=== PATIENT | male | born 1960 | race Caucasian/White ===

== ENCOUNTER 2021-05-10 13:34 | Inpatient (IN) | payer OTHER ==
[~2021-05-10] VITALS: Ht 154.9 cm; Wt 60.1 kg
[2021-05-10] MEDS ORDERED: HEPARIN SODIUM 25000 UNITS/D5W 250 ML IV PRN (14:30)
[2021-05-10 14:55] LABS: BASOPHILS % (AUTO) 0.5 % (0.0-2.0); EOSINOPHILS % (AUTO) 0.3 % (1.0-6.0); HEMATOCRIT 38.8 % (41-53); HEMOGLOBIN 12.9 g/dL (13.5-17.5); LYMPHOCYTES # (AUTO) 2.1 K/uL (1.0-4.8); LYMPHOCYTES % (AUTO) 18.1 % (22.0-44.0); MEAN CORPUSCULAR HGB CONC 33.3 G/dL (31.0-37.0); MEAN CORPUSCULAR VOLUME 84 fL (80-100); MONOCYTES # (AUTO) 1.3 K/uL (0.1-1.0); MONOCYTES % (AUTO) 11.2 % (2.0-9.0); NEUTROPHILS # (AUTO) 8.3 K/uL (1.8-7.7); NEUTROPHILS % (AUTO) 69.9 % (40.0-70.0); PLATELET COUNT (AUTO) 324 K/uL (150-450); RED BLOOD CELL COUNT(AUTO) 4.61 MIL/uL (4.50-5.90); RED CELL DISTRIBUTION WIDTH 13.5 % (11.5-14.5)
[2021-05-10] MEDS ORDERED: HEPARIN SODIUM,PORCINE 5,000 UNITS/ML VIAL IVP PRN ×2 (15:00)
[2021-05-10 15:04] LABS: ANION GAP 6 mmol/L (8-16); CALCIUM, TOTAL 9.4 mg/dL (8.8-10.5); CARBON DIOXIDE 33 mmol/L (22-29); CHLORIDE 102 mmol/L (98-107); CREATININE 0.85 mg/dL (0.60-1.30); GLOMERULAR FILTR. RATE CALC > 60 mL/min (>60); GLUCOSE,RANDOM 97 mg/dL (70-110); POTASSIUM 3.4 mmol/L (3.5-5.1); SODIUM SERUM 141 mmol/L (136-145); UREA NITROGEN, BLOOD 12 mg/dL (7-18)
[2021-05-10 15:10] LABS: ALANINE AMINOTRANSFERASE 17 U/L (12-78); ALBUMIN 3.2 g/dL (3.4-5.0); ALKALINE PHOSPHATASE 84 U/L (46-116); ASPARTATE AMINOTRANSFERASE 13 U/L (15-37); BILIRUBIN,TOTAL 0.4 mg/dL (0.1-1.0); TOTAL PROTEIN, SERUM 7.6 g/dL (6.4-8.2)
[2021-05-10 15:12] LABS: INR 1.1 (0.9-1.1); PROTHROMBIN TIME 11.6 SEC (9.4-11.6)
[2021-05-10] MEDS ORDERED: ONDANSETRON HCL 4 MG/2 ML VIAL IVP PRN (15:30)
[2021-05-10] MEDS ORDERED: 0.9% SODIUM CHLORIDE 10 ML SYRINGE IVP PRN (15:30)
[2021-05-10] MEDS ORDERED: ACETAMINOPHEN 325 MG TABLET PO PRN ×2 (15:30→18:00)
[2021-05-10] MEDS ORDERED: IOHEXOL 300 MG/ML 150 ML VIAL ONE (16:01)
[2021-05-10] MEDS ORDERED: IOHEXOL 300 MG/ML 50 ML VIAL ONE (16:01)
[2021-05-10] MEDS ORDERED: LIDOCAINE/PF 1% 30 ML VIAL ONE (16:01)
[2021-05-10] MEDS ORDERED: SODIUM BICARBONATE 50 MEQ/50 ML VIAL ONE (16:01)
[2021-05-10 16:03] LABS: COVID AG,FIA SOURCE NASOPHARYNGEAL
[2021-05-10 16:29] VITALS: BP 160/84
[2021-05-10] MEDS ORDERED: FentaNYL CITRATE PF 100 MCG/2 ML VIAL ONE ×2 (16:46→17:20)
[2021-05-10] MEDS ORDERED: MIDAZOLAM HCL 2 MG/2 ML VIAL ONE (16:47)
[2021-05-10] MEDS ORDERED: MIDAZOLAM HCL 2 MG/2 ML VIAL IVP ONE ×3 (17:00→17:15)
[2021-05-10] MEDS ORDERED: SODIUM CHLORIDE 0.9% 500 ML IV ONE (17:00)
[2021-05-10] MEDS ORDERED: LIDOCAINE 1% 30 ML/SOD BICARB 8.4% 4 ML SQ ONE (17:00)
[2021-05-10] MEDS ORDERED: FentaNYL CITRATE PF 100 MCG/2 ML VIAL IVP ONE ×3 (17:00→17:15)
[2021-05-10] MEDS ORDERED: IOHEXOL 300 MG/ML 150 ML VIAL IARTER ONE (17:00)
[2021-05-10] MEDS ORDERED: HEPARIN SODIUM,PORCINE 5,000 UNITS/ML VIAL IVP ONE ×2 (17:15→17:30)
[2021-05-10] MEDS ORDERED: NITROGLYCERIN/D5W 50 MG/250 ML IV BOTTLE IARTER ONE (17:45)
[2021-05-10 18:04] VITALS: BP 122/72
[2021-05-10 18:14] VITALS: BP 129/79
[2021-05-10 19:58] VITALS: BP 156/90
[2021-05-10 20:46] LABS: GLUCOMETER DEV NAME(LOC) 5S.2B; GLUCOSE,POINT OF CARE 112 MG/DL (70-110)
[2021-05-10] MEDS: RIVAROXABAN 10 MG TABLET PO SCH (21:00)
[2021-05-10] MEDS: METOPROLOL TARTRATE 25 MG TABLET PO SCH (21:31)
[2021-05-10] MEDS: SODIUM CHLORIDE 0.9% 1,000 ML IV SCH (21:37)
[2021-05-10 23:45] VITALS: BP 148/77
[2021-05-11] VITALS (8 sets, daily range): BP systolic 126–156; BP diastolic 68–107
[2021-05-11] MEDS: HYDROCODONE/ACETAMINOPHEN 5-325 MG TABLET PO PRN ×3 (01:59→20:28)
[2021-05-11 04:56] LABS: GLUCOMETER DEV NAME(LOC) 5S.2B; GLUCOSE,POINT OF CARE 122 MG/DL (70-110)
[2021-05-11 07:43] LABS: BASOPHILS % (AUTO) 0.3 % (0.0-2.0); EOSINOPHILS % (AUTO) 0.3 % (1.0-6.0); HEMATOCRIT 38.9 % (41-53); HEMOGLOBIN 13.1 g/dL (13.5-17.5); LYMPHOCYTES # (AUTO) 1.5 K/uL (1.0-4.8); LYMPHOCYTES % (AUTO) 14.7 % (22.0-44.0); MEAN CORPUSCULAR HEMOGLOBIN 28.3 pg (26.0-34.0); MEAN CORPUSCULAR HGB CONC 33.6 G/dL (31.0-37.0); MEAN CORPUSCULAR VOLUME 84 fL (80-100); MONOCYTES # (AUTO) 1.1 K/uL (0.1-1.0); MONOCYTES % (AUTO) 10.3 % (2.0-9.0); NEUTROPHILS # (AUTO) 7.7 K/uL (1.8-7.7); NEUTROPHILS % (AUTO) 74.4 % (40.0-70.0); PLATELET COUNT (AUTO) 298 K/uL (150-450); RED BLOOD CELL COUNT(AUTO) 4.62 MIL/uL (4.50-5.90); RED CELL DISTRIBUTION WIDTH 13.7 % (11.5-14.5)
[2021-05-11 08:04] LABS: ALANINE AMINOTRANSFERASE 16 U/L (12-78); ALBUMIN 3.1 g/dL (3.4-5.0); ALKALINE PHOSPHATASE 82 U/L (46-116); ANION GAP 11 mmol/L (8-16); ASPARTATE AMINOTRANSFERASE 13 U/L (15-37); BILIRUBIN,TOTAL 0.5 mg/dL (0.1-1.0); CALCIUM, TOTAL 9.2 mg/dL (8.8-10.5); CARBON DIOXIDE 27 mmol/L (22-29); CHLORIDE 101 mmol/L (98-107); CREATININE 0.64 mg/dL (0.60-1.30); GLOMERULAR FILTR. RATE CALC > 60 mL/min (>60); GLUCOSE,RANDOM 125 mg/dL (70-110); POTASSIUM 3.1 mmol/L (3.5-5.1); SODIUM SERUM 139 mmol/L (136-145); TOTAL PROTEIN, SERUM 7.3 g/dL (6.4-8.2); UREA NITROGEN, BLOOD 9 mg/dL (7-18)
[2021-05-11] MEDS: METOPROLOL TARTRATE 25 MG TABLET PO SCH ×2 (09:07→21:26)
[2021-05-11] MEDS: ASPIRIN 81 MG CHEWABLE TABLET PO SCH (09:07)
[2021-05-11] MEDS: RIVAROXABAN 10 MG TABLET PO SCH ×2 (09:08→21:27)
[2021-05-11] MEDS: CLOPIDOGREL BISULFATE 75 MG TABLET PO SCH (09:08)
[2021-05-11] MEDS: SODIUM CHLORIDE 0.9% 1,000 ML IV SCH (09:11)
[2021-05-11] MEDS ORDERED: MORPHINE SULFATE 2 MG/ML SYRINGE IVP PRN (13:15)
[2021-05-11] MEDS: HYDROmorphone 2 MG/ML VIAL IVP PRN ×3 (14:56→23:04)
[2021-05-11] MEDS: CeFAZolin 2 GM/DEXTROSE 50 ML IV SCH ×2 (15:02→21:27)
[2021-05-11] MEDS ORDERED: POTASSIUM CHLORIDE 20 MEQ ER TABLET PO ONE (16:00)
[2021-05-11 20:12] LABS: GLUCOMETER DEV NAME(LOC) 5S.1; GLUCOSE,POINT OF CARE 202 MG/DL (70-110)
[2021-05-12 00:23] VITALS: BP 154/84
[2021-05-12] MEDS: HYDROmorphone 2 MG/ML VIAL IVP PRN ×2 (02:51→12:40)
[2021-05-12 04:17] VITALS: BP 145/83
[2021-05-12] MEDS: CeFAZolin 2 GM/DEXTROSE 50 ML IV SCH ×2 (05:14→13:12)
[2021-05-12 07:17] LABS: BASOPHILS % (AUTO) 0.4 % (0.0-2.0); EOSINOPHILS % (AUTO) 0.8 % (1.0-6.0); HEMATOCRIT 38.3 % (41-53); HEMOGLOBIN 12.6 g/dL (13.5-17.5); LYMPHOCYTES # (AUTO) 1.8 K/uL (1.0-4.8); LYMPHOCYTES % (AUTO) 18.3 % (22.0-44.0); MEAN CORPUSCULAR HEMOGLOBIN 27.7 pg (26.0-34.0); MEAN CORPUSCULAR HGB CONC 32.9 G/dL (31.0-37.0); MEAN CORPUSCULAR VOLUME 84 fL (80-100); MONOCYTES # (AUTO) 1.2 K/uL (0.1-1.0); MONOCYTES % (AUTO) 12.2 % (2.0-9.0); NEUTROPHILS # (AUTO) 6.6 K/uL (1.8-7.7); NEUTROPHILS % (AUTO) 68.3 % (40.0-70.0); PLATELET COUNT (AUTO) 306 K/uL (150-450); RED BLOOD CELL COUNT(AUTO) 4.54 MIL/uL (4.50-5.90); RED CELL DISTRIBUTION WIDTH 13.5 % (11.5-14.5)
[2021-05-12 07:43] LABS: ANION GAP 8 mmol/L (8-16); CALCIUM, TOTAL 9.1 mg/dL (8.8-10.5); CARBON DIOXIDE 31 mmol/L (22-29); CHLORIDE 99 mmol/L (98-107); CREATININE 0.77 mg/dL (0.60-1.30); GLOMERULAR FILTR. RATE CALC > 60 mL/min (>60); GLUCOSE,RANDOM 198 mg/dL (70-110); POTASSIUM 3.6 mmol/L (3.5-5.1); SODIUM SERUM 138 mmol/L (136-145); UREA NITROGEN, BLOOD 12 mg/dL (7-18)
[2021-05-12] MEDS: ASPIRIN 81 MG CHEWABLE TABLET PO SCH (08:13)
[2021-05-12] MEDS: METOPROLOL TARTRATE 25 MG TABLET PO SCH (08:13)
[2021-05-12] MEDS: CLOPIDOGREL BISULFATE 75 MG TABLET PO SCH (08:14)
[2021-05-12] MEDS: RIVAROXABAN 10 MG TABLET PO SCH (08:14)
[2021-05-12 08:16] VITALS: BP 142/72
[2021-05-12] MEDS ORDERED: ETHYL ALCOHOL 62% ANTISEPTIC NASAL INHALANT 0.6 ML AMPUL NASAL ONE (11:30)
[2021-05-12] MEDS ORDERED: CLOP75TA60 PO (11:49)
[2021-05-12] MEDS ORDERED: ASPI-1450 PO (11:49)
[2021-05-12] MEDS ORDERED: METO25 PO (11:49)
[2021-05-12] MEDS ORDERED: RIVA10TA PO (11:50)
[2021-05-12] MEDS ORDERED: DOXY-354 PO (11:51)
[2021-05-12] MEDS ORDERED: OXYC-38 PO (12:23)
[2021-05-12 12:49] VITALS: BP 146/67
[2021-05-12 16:11] VITALS: BP 147/86
[2021-05-12] MEDS: HYDROCODONE/ACETAMINOPHEN 5-325 MG TABLET PO PRN (18:22)
== END 2021-05-12 18:15 | disposition home or self-care (01) | DRG 182 ==
LOC: EMS 13:34 → 5N 15:04 → 5S 18:15
PROVIDERS: ADMIT Hospitalist; ATTEND Hospitalist
PROC: 047M3ZZ Dilation of Right Popliteal Artery, Percutaneous Approach (ICD-10-PCS; principal; 2021-05-10)
PROC: B410YZZ Fluoroscopy of Abdominal Aorta using Other Contrast (ICD-10-PCS; 2021-05-10)
PROC: B41CYZZ Fluoroscopy of Pelvic Arteries using Other Contrast (ICD-10-PCS; 2021-05-10)
PROC: B41FYZZ Fluoroscopy of Right Lower Extremity Arteries using Other Contrast (ICD-10-PCS; 2021-05-10)
PROC: 047R3ZZ Dilation of Right Posterior Tibial Artery, Percutaneous Approach (ICD-10-PCS; 2021-05-10)
PROC: 04CM3ZZ Extirpation of Matter from Right Popliteal Artery, Percutaneous Approach (ICD-10-PCS; 2021-05-10)
PROC: 04CR3ZZ Extirpation of Matter from Right Posterior Tibial Artery, Percutaneous Approach (ICD-10-PCS; 2021-05-10)
DX: E11.52 Type 2 diabetes mellitus with diabetic peripheral angiopathy with gangrene (principal); E78.00 Pure hypercholesterolemia, unspecified; Z20.822 Contact with and (suspected) exposure to COVID-19; I10 Essential (primary) hypertension; Z79.01 Long term (current) use of anticoagulants; Z79.02 Long term (current) use of antithrombotics/antiplatelets; Z79.899 Other long term (current) drug therapy
CPT/HCPCS: 36200; 37229; 75630; 75716; 75962; 80048; 80053; 82962; 85025; 85610; 85730; 86850; 86900; 86901; 87081; 93005; 99285; J0690; J1170; J1644; J2250; J2270; J3010; J3490; J7030; Q9967